=== PATIENT | male | born 1975 | race Caucasian/White ===

== ENCOUNTER 2023-07-02 09:35 | Emergency (ER) | payer BC, SELFPAY ==
[2023-07-02 09:55] VITALS: BP 140/90; PULSE 81; RESP 19; TEMP 37.2; O2SAT 97; BMI 36.6
--- NOTE | 2023-07-02 10:17 | ED_ITS ---
Discharge Plan Disposition Patient Disposition: Home, Self-Care Condition: Good Prescriptions Prescriptions: New prednisone [prednisone] 20 mg tablet 20 mg PO BID 5 Days Qty: 10 0RF amoxicillin-pot clavulanate 875-125 mg Tablet 1 tab PO Q12H Qty: 20 0RF No Action sildenafil 100 mg tablet 100 mg PO BIDP PRN (Reason: .) Patient Comments: TAKE 1 TABLET BY MOUTH ONCE NEEDED AN HOUR BEFORE SEX. DO NOT TAKE MORE THAN 1 TABLET EVERY 48 HOURS. THIS IS NOT A DAILY MEDICINE chlorhexidine gluconate 0.12 % mouthwash 5 ml PO BID Patient Comments: SWISH AND SPIT 5 TO 10 ML IN MOUTH TWICE DAILY FOR 2 WEEKS Referrals Follow up/Referrals: Ronny Dozier MD [Primary Care Provider] - See instructions Activity Restrictions/Add. Instructions Additional Instructions/Restrictions: *Monitor Temp, Over the counter Motrin or Tylenol as directed/as needed Tylenol every 4 hours and Motrin every 6 hours (as long as your family doctor has told you that you can take it) for fever or pain. and straight to ER if unable to lower temp less than 101.0 after medication given *Warm salt water gargles may help to soothe the throat *Throat Lozenges? *Warm fluids like tea with honey may help to soothe the throat? *Sleep elevated *Humidifier/Vaporizer Follow up IMMEDIATELY for new or worsening symptoms or no Noticeable improvement over the next 48-72 hours. 911 for difficulty breathing or swallowing Clinical Impressions Clinical Impression: Sinusitis Qualifiers: Sinusitis location: unspecified location Chronicity: unspecified Qualified Code(s): J32.9 - Chronic sinusitis, unspecified Instructions Patient Instructions: DI for Sinusitis, Sinus Headache Discharge ED Provider: Kayleigh Shabazz [facility] HPI General Stated complaint: h/a, congestion Mode of Arrival: Ambulatory Source of Information: Patient Limitations: No Limitations Time Seen by Provider: 07/02/23 10:17 Description of Symptoms (Recalled from Triage Doc. by RN): PATIENT C/O SINUS HEADACHE AND PRESSURE X 1 WEEK HEENT Symptoms (Recalled from RN notes): Yes Resp Symptoms (Recalled from RN notes): No Skin Symptoms (Recalled from RN notes): No MS Symptoms (Recalled from RN notes): No Functional Status (Recalled from RN notes): WNL History of Present Illness Provider Complaint: Patient states that for the last week he has been having sinus pain and pressure and pressure behind his eyes States that today he was still not any better so he came in to get checked Related Data Home Medications Medication Instructions Recorded Confirmed chlorhexidine gluconate 0.12 % 5 ml PO BID 07/02/23 07/02/23 mouthwash sildenafil 100 mg tablet 100 mg PO BIDP PRN . 07/02/23 07/02/23 Previous Rx's Medication Instructions Recorded amoxicillin 875 mg-potassium 1 tab PO Q12H #20 tabs 07/02/23 clavulanate 125 mg tablet prednisone 20 mg tablet 20 mg PO BID 5 days #10 tabs 07/02/23 Allergies Allergy/AdvReac Type Severity Reaction Status Date / Time codeine Allergy Verified 07/02/23 10:04 Worker's Comp Is this a Worker's Comp case?: No [facility] Disclaimer: The information contained in this section may have been updated after the patient was seen, as this information can be updated by other users. Medical History (Updated 07/02/23 @ 10:29 by Kayleigh Shabazz APRN) No significant past medical history Social History Smoking Status: Unknown if ever smoked alcohol intake: never current occupational status: employed Travel in the last 8 weeks: None ROS Obtained: Yes All systems reviewed & no additional complaints except as documented and Yes Systems reviewed as appropriate & no additional complaints except as documented Constitutional Constitutional: Reports system reviewed and no additional complaints, except as documented, Reports as per HPI and Reports headache(s) ENT Ears, Nose, Mouth, and Throat: Reports system reviewed and no additional c omplaints, except as documented, Reports as per HPI, Reports headache(s), Reports sinus pain and Reports sinus pressure Cardiovascular Cardiovascular: Reports system reviewed and no additional complaints, except as documented and Reports as per HPI Respiratory Respiratory: Reports system reviewed and no additional complaints, except as documented and Reports as per HPI Gastrointestinal Gastrointestingal: Reports system reviewed and no additional complaints, except as documented and as per HPI Neurologic Neurologic: Reports headache(s) Physical Exam General General appearance: alert and in no apparent distress ENT ENT exam: Present mucous membranes moist Expanded ENT Exam Nose exam: Present sinus tenderness Respiratory Respiratory exam: Present normal lung sounds bilaterally; Absent respiratory distress or wheezes Cardiovascular Cardiovascular exam: Present regular rate, normal rhythm and normal heart sounds Abdominal Exam Abdominal exam: Present soft and normal bowel sounds; Absent distention or tenderness Neurological Exam Neurological exam: Present alert, oriented X3 and normal gait Medical Decision Making Amari Inquiry Pt receiving controlled substance: No Amari was queried for this patient: No Vital Signs: 07/02/23 09:55 Temperature 98.9 F Temperature Source Oral Pulse Rate [Left Brachial] 81 Respiratory Rate 19 Blood Pressure [Left Arm] 140/90 Blood Pressure Mean [Left Arm] 106 Blood Pressure Source [Left Arm] Automatic Cuff Blood Pressure Position [Left Arm] Sitting 02 Sat by Pulse Oximetry 97 Oxygen Delivery Method Room Air Medical Decision Narrative: Patient states that he has taken prednisone in the past without complications or reactions
[2023-07-02 10:30] VITALS: BP 140/90; PULSE 81; RESP 19; TEMP 37.2; O2SAT 97
== END 2023-07-02 10:33 | disposition home or self-care (01) ==
PROVIDERS: Emergency Provider Nurse Practitioner; PCP Family Medicine
DX: J01.90 Acute sinusitis, unspecified (principal); R51.9 Headache, unspecified; R09.81 Nasal congestion
CPT/HCPCS: 99204; 99212; G0463